=== PATIENT | female | born 1980 | race Caucasian/White ===

== ENCOUNTER 2020-10-05 14:37 | Emergency (ER) | payer MEDICAID ==
[~2020-10-05] VITALS: Ht 167.6 cm; Wt 86.4 kg
[2020-10-05 14:38] VITALS: TEMP 98.6
[2020-10-05] MEDS ORDERED: ZOLOFT 100MG100 MG PO (15:33)
[2020-10-05] MEDS ORDERED: SEROQUEL 2525 MG/TAB PO (15:34)
[2020-10-05] MEDS ORDERED: TOPROL XL 25MG25 MG PO (15:34)
[2020-10-05] MEDS ORDERED: KEPPRA1000 MG PO (15:35)
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
[2020-10-05 16:18] LABS: BASO % 0.4 % (0.0-2.0); GRAN # 3.7 (1.4-6.5); HEMATOCRIT 40.1 % (37.0-47.0); HEMOGLOBIN 13.7 g/dl (12.5-16.0); LYMPH # 1.6 (1.2-3.4); MEAN CELL VOLUME 94 fl (80.0-100.0); MEAN CORPUSCULAR HEMOGLOBIN 32 pg (27.0-31.0); MEAN CORPUSCULAR HGB CONC 34 g/dl (33.0-37.0); MEAN PLATELET VOLUME 8.7 fl (7.4-10.4); MONO # 0.3 (0.1-0.6); MONO % 5.2 % (1.7-9.3); PLATELET COUNT 155 K/mm3 (130-400); RED BLOOD COUNT 4.26 M/mm3 (4.10-5.30); REDCELL DISTRIBUTION WIDTH-CV 15.8 % (11.5-14.5)
[2020-10-05 16:23] LABS: ALANINE AMINOTRANSFERASE 37 U/L (4-34); ALBUMIN 4.7 gm/dL (3.5-5.0); ALKALINE PHOSPHATASE 88 U/L (50-136); ANION GAP 15 mmol/L (7-16); AST,SGOT 110 U/L (15-37); BILIRUBIN,TOTAL 0.4 mg/dL (0.0-1.0); BLOOD UREA NITROGEN 14 mg/dL (7-17); CALCIUM 8.2 mg/dL (8.4-10.2); CARBON DIOXIDE 25 mmol/L (22-30); CHLORIDE 103 mmol/L (98-107); CREATININE, serum 0.49 (0.52-1.25); GLUCOSE 93 mg/dL (74-106); POTASSIUM 4.1 mmol/L (3.4-5.0); SODIUM 143 mmol/L (137-145); TOTAL PROTEIN 7.7 gm/dL (6.4-8.2)
[2020-10-05 16:25] LABS: ACETAMINOPHEN < 10 ug/mL (10-30); SALICYLATE < 1.0 mg/dL
[2020-10-05 18:53] LABS: TRICYCLIC ANTIDEPRESS URINE NEGATIVE
[2020-10-06 07:05] VITALS: BP 133/77; PULSE 97
== END 2020-10-06 07:10 | disposition home or self-care (01) ==
LOC: COL.ER 14:37
PROVIDERS: Emergency Medicine
DX: F10.129 Alcohol abuse with intoxication, unspecified (principal); R45.851 Suicidal ideations; M25.571 Pain in right ankle and joints of right foot; F17.200 Nicotine dependence, unspecified, uncomplicated; Z91.410 Personal history of adult physical and sexual abuse
CPT/HCPCS: J1170; J2405; J3010

== ENCOUNTER 2020-12-06 16:28 | Emergency (ER) | payer MEDICAID ==
[~2020-12-06] VITALS: Ht 167.6 cm; Wt 95.5 kg
[~2020-12-06 16:28] MED LIST: KEPPRA1000 MG PO; SEROQUEL 2525 MG/TAB PO; TOPROL XL 25MG25 MG PO; ZOLOFT 100MG100 MG PO
[2020-12-06 17:45] LABS: BASO % 0.7 % (0.0-2.0); EOS % 0.2 % (0-4.0); GRAN # 2.4 (1.4-6.5); GRAN % 54.8 % (42.2-75.2); HEMATOCRIT 43.7 % (37.0-47.0); HEMOGLOBIN 15.7 g/dl (12.5-16.0); LYMPH # 1.7 (1.2-3.4); LYMPH % 38.1 % (20.0-51.0); MEAN CELL VOLUME 90 fl (80.0-100.0); MEAN CORPUSCULAR HEMOGLOBIN 32 pg (27.0-31.0); MEAN CORPUSCULAR HGB CONC 36 g/dl (33.0-37.0); MEAN PLATELET VOLUME 9.2 fl (7.4-10.4); MONO # 0.3 (0.1-0.6); MONO % 5.7 % (1.7-9.3); PLATELET COUNT 211 K/mm3 (130-400); RED BLOOD COUNT 4.87 M/mm3 (4.10-5.30); REDCELL DISTRIBUTION WIDTH-CV 13.4 % (11.5-14.5)
[2020-12-06 18:24] LABS: ALBUMIN 4.4 gm/dL (3.5-5.0); BILIRUBIN,TOTAL 0.8 mg/dL (0.0-1.0); CALCIUM 7.3 mg/dL (8.4-10.2); CREATININE, serum 0.51 (0.52-1.25); POTASSIUM 3.7 mmol/L (3.4-5.0); TOTAL PROTEIN 7.7 gm/dL (6.4-8.2)
[2020-12-06] MEDS ORDERED: NORCO 325 MG-51 TAB PO (18:56)
[2020-12-06 19:36] VITALS: BP 128/64; PULSE 81; TEMP 97
== END 2020-12-06 19:40 | disposition home or self-care (01) ==
LOC: COL.ER 16:28
PROVIDERS: Emergency Medicine
DX: K08.89 Other specified disorders of teeth and supporting structures (principal); F10.129 Alcohol abuse with intoxication, unspecified; T74.11XA Adult physical abuse, confirmed, initial encounter; I10 Essential (primary) hypertension; G40.909 Epilepsy, unspecified, not intractable, without status epilepticus; Z87.891 Personal history of nicotine dependence; Y90.8 Blood alcohol level of 240 mg/100 ml or more; Z79.899 Other long term (current) drug therapy; X58.XXXA Exposure to other specified factors, initial encounter

== ENCOUNTER 2020-12-25 21:22 | Emergency (ER) | payer MEDICAID ==
[~2020-12-25] VITALS: Ht 167.6 cm; Wt 90.9 kg
[~2020-12-25 21:22] MED LIST changes: +NORCO 325 MG-51 TAB PO
[2020-12-25 22:40] VITALS: BP 125/81; PULSE 100; TEMP 98.5
== END 2020-12-25 23:10 | disposition home or self-care (01) ==
LOC: COL.ER 21:22
DX: G89.29 Other chronic pain (principal); M25.571 Pain in right ankle and joints of right foot; I10 Essential (primary) hypertension; G40.909 Epilepsy, unspecified, not intractable, without status epilepticus; Z87.891 Personal history of nicotine dependence; Z79.899 Other long term (current) drug therapy; W19.XXXA Unspecified fall, initial encounter
CPT/HCPCS: J3010

== ENCOUNTER 2020-12-27 14:59 | Emergency (ER) | payer MEDICAID ==
[~2020-12-27] VITALS: Ht 167.6 cm; Wt 84.1 kg
[2020-12-27 18:24] VITALS: BP 128/74; PULSE 80; TEMP 98
== END 2020-12-27 18:26 | disposition home or self-care (01) ==
LOC: COL.ER 14:59
DX: S93.401A Sprain of unspecified ligament of right ankle, initial encounter (principal); F32.9 Major depressive disorder, single episode, unspecified; F41.9 Anxiety disorder, unspecified; F17.200 Nicotine dependence, unspecified, uncomplicated; Z87.81 Personal history of (healed) traumatic fracture; Z98.890 Other specified postprocedural states; Z79.899 Other long term (current) drug therapy; W10.9XXA Fall (on) (from) unspecified stairs and steps, initial encounter; Y92.009 Unspecified place in unspecified non-institutional (private) residence as the place of occurrence of the external cause
CPT/HCPCS: J2270

== ENCOUNTER 2021-01-07 15:45 | Emergency (ER) | payer MEDICAID ==
[~2021-01-07] VITALS: Ht 167.6 cm; Wt 81.8 kg
[2021-01-07 15:46] VITALS: TEMP 98.1
[2021-01-07] MEDS ORDERED: NEURONTIN300 MG/CAP PO ×2 (15:50→16:27)
[2021-01-07] MEDS ORDERED: ASPIRIN 32325 MG/TAB PO (15:57)
[2021-01-07] MEDS ORDERED: CAMPRAL333 M1 (15:58)
[2021-01-07] MEDS ORDERED: AMOXICILLIN 50500 MG PO (15:59)
[2021-01-07] MEDS ORDERED: SEROQUEL 2525 MG/TAB PO (15:59)
[2021-01-07] MEDS ORDERED: DESYREL 50MG50 MG PO (16:01)
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
[2021-01-07 16:43] VITALS: BP 143/92; PULSE 104
== END 2021-01-07 16:55 | disposition home or self-care (01) ==
LOC: COL.ER 15:45
DX: M25.572 Pain in left ankle and joints of left foot (principal); G89.29 Other chronic pain; Z98.890 Other specified postprocedural states
CPT/HCPCS: J1885; J2360

== ENCOUNTER 2021-05-07 18:20 | Inpatient (IN) | payer MEDICAID ==
[~2021-05-07] VITALS: Ht 167.6 cm; Wt 90.1 kg
[~2021-05-07 18:20] MED LIST changes: +AMOXICILLIN 50500 MG PO; +ASPIRIN 32325 MG/TAB PO; +CAMPRAL333 M1; +DESYREL 50MG50 MG PO; +NEURONTIN300 MG/CAP PO
[2021-05-07 19:26] LABS: ALANINE AMINOTRANSFERASE 33 U/L (0-55); ALBUMIN 3.8 gm/dL (3.5-5.0); ANION GAP 23 mmol/L (7-16); AST,SGOT 72 U/L (5-34); BILIRUBIN,TOTAL 0.5 mg/dL (0.2-1.2); BLOOD UREA NITROGEN 7 mg/dL (7-19); CHLORIDE 102 mmol/L (98-107); GLUCOSE 103 mg/dL (70-99); SODIUM 137 mmol/L (136-145)
[2021-05-07 19:29] LABS: CARBON DIOXIDE 12 mmol/L (22-29)
[2021-05-07 19:32] LABS: TROPONIN-I < 0.010 ng/mL (0.00-0.033)
[2021-05-07 20:05] LABS: ALKALINE PHOSPHATASE 91 U/L (50-136)
[2021-05-07 21:07] LABS: HEMOGLOBIN 12.7 g/dl (12.5-16.0); MEAN CELL VOLUME 91 fl (80.0-100.0); MEAN CORPUSCULAR HEMOGLOBIN 32 pg (27.0-31.0); MEAN CORPUSCULAR HGB CONC 35 g/dl (33.0-37.0); MEAN PLATELET VOLUME 11.2 fl (7.4-10.4); REDCELL DISTRIBUTION WIDTH-CV 14.9 % (11.5-14.5)
[2021-05-07 21:13] LABS: HEMATOCRIT 36.2 % (37.0-47.0)
[2021-05-07 21:15] LABS: PLATELET COUNT 40 K/mm3 (130-400)
[2021-05-07 21:40] LABS: BAND 2 % (0-10); BASOPHIL 1 % (0-2); LYMPHOCYTE 60 % (20.0-51.0); NEUTROPHILS 34 % (42.0-75.2)
[2021-05-07 21:41] LABS: PLATELET ESTIMATE DECREASED (NORMAL)
[2021-05-07 21:45] LABS: ARTERIAL BLD GAS O2 SATURATION 96.4 % (92-100); ARTERIAL BLD GAS TCO2 CT 19.9; ARTERIAL BLOOD GAS BASE EXCESS -3.8 (-2-2); ARTERIAL BLOOD GAS PCO2 28.3 mmHg (35-45); ARTERIAL BLOOD GAS PO2 92.3 mmHg (80-100); ARTERIAL BLOOD GAS pH 7.45 (7.35-7.45)
[2021-05-07 23:22] VITALS: BP 149/80; PULSE 102; TEMP 98.7
[2021-05-07 23:25] LABS: INR 1.1 (0.8-3.0); PROTHROMBIN TIME 12.5 SECONDS (9.7-12.8)
[2021-05-08] VITALS (11 sets, daily range): BP systolic 138–174; BP diastolic 70–110; PULSE 97–136; TEMP 97.9–98.4
--- NOTE | 2021-05-08 01:36 | NUR ---
PT RECEIVED ON FLOOR, VITAL SIGNS TAKEN AND ADMISSION ASSESSMENTS COMPLETED. PT STATING PAIN IS PARTIALLY RELIEVED WITH MORPHINE. PT IV SITE CHANGED TO RIGHT HAND. PT ORIENTED TO ROOM. PILLOW AND ICE PACK GIVEN FOR COMFORT. NO OTHER NEEDS AT THIS TIME.
[2021-05-08 01:42] LABS: COLLECTION METHOD CLEAN CATCH
[2021-05-08 01:47] LABS: PH 7 (5-8); SQUAMOUS EPITHELIAL 0-2 /hpf; URINE APPEARANCE Clear; URINE BACTERIA None Seen /hpf; URINE BILIRUBIN Negative (NEGATIVE); URINE BLOOD 1+ (NEGATIVE); URINE COLOR Yellow; URINE GLUCOSE Negative (NEGATIVE); URINE KETONE Trace (NEGATIVE); URINE LEUKOCYTE ESTERASE Negative (NEGATIVE); URINE NITRATE Negative (NEGATIVE); URINE PROTEIN(semi-quant) Negative (NEGATIVE); URINE RBC 0-2 /hpf; URINE UROBILINOGEN Negative (NEGATIVE); URINE WBC 0-2 /hpf
--- NOTE | 2021-05-08 03:16 | NUR ---
PT REQUESTING HEART RATE CHECK. PT HEART RATE 103-107BPM. PT DENIES PAIN OR SOA. PT AMBULATED TO RESTROOM, WILL CONTINUE TO MONITOR.
--- NOTE | 2021-05-08 03:22 | NUR ---
NOTIFIED MARYAM SABA OF ELEVATED HEART RATE AND INCREASED ANXIETY. RECEIVED VERBAL INSTRUCTIONS FOR ATIVAN AND CONTINUING TO MONITOR AND CIWA SCORING.
--- NOTE | 2021-05-08 04:25 | NUR ---
NOTIFIED MARYAM SABA OF ELEVATED BLOOD PRESSURE.
--- NOTE | 2021-05-08 05:05 | NUR ---
PT BP RECHECKED MANUALLY AT THIS TIME, 170/110. PRN HYDRALAZINE TO BE GIVEN AT THIS TIME.
--- NOTE | 2021-05-08 05:45 | NUR ---
PT CONTINUING ON PLAN OF CARE. PT RECEIVED BOLUS OF LACTATED RINGERS AFTER LACTIC ACID VALUE COLLECTED. PT CONTINUES TO HAVE MAINTENANCE FLUIDS RUNNING. PT BLOOD PRESSURE ELEVATED, MANAGED WITH PRN HYDRALAZINE. PT ABLE TO AMBULATE TO BATHROOM, SBA ASSIST. PT REFUSING [place]KEER AT THIS TIME. PT PAIN MANAGED WITH PRN MEDICATIONS PER ORDERS. PT CIWA SCORING 3-7. GIVEN 1MG OF IV ATIVAN PER ORDERS.
[2021-05-08 08:09] LABS: HEMATOCRIT 37.1 % (37.0-47.0); MEAN CELL VOLUME 91 fl (80.0-100.0); MEAN CORPUSCULAR HEMOGLOBIN 32 pg (27.0-31.0); MEAN CORPUSCULAR HGB CONC 35 g/dl (33.0-37.0); MEAN PLATELET VOLUME 10.9 fl (7.4-10.4); REDCELL DISTRIBUTION WIDTH-CV 14.9 % (11.5-14.5)
[2021-05-08 08:13] LABS: PLATELET COUNT 39 K/mm3 (130-400)
[2021-05-08 08:20] LABS: CREATININE, serum 0.61 mg/dL (0.57-1.11); POTASSIUM 3.2 mmol/L (3.5-4.5)
[2021-05-08 09:20] LABS: ANISOCYTOSIS 1+; BAND 58 % (0-10); NEUTROPHILS 18 % (42.0-75.2); PLATELET ESTIMATE DECREASED (NORMAL)
[2021-05-08 15:23] LABS: MAGNESIUM 2.2 mg/dL (1.6-2.6); POTASSIUM 3.3 mmol/L (3.5-4.5)
[2021-05-09] VITALS: BP 145/87; PULSE 94; TEMP 98.1
--- NOTE | 2021-05-09 01:24 | NUR ---
PT ALERT AND ORIENTED. PT PAIN MANAGED WITH PRN MEDICATIONS PER ORDERS. PT ABLE TO AMBULATE TO BATHROOM, SBA. PT CLEAR LUNGS. PT TACHYCARDIA AND ELEVATED BLOOD PRESSURE. PT ABLE TO EXPRESS NEEDS. PT CALL LIGHT WITHIN REACH. NEW MASK GIVEN, NO OTHER NEEDS AT THIS TIME.
--- NOTE | 2021-05-09 01:41 | NUR ---
Called from [facility] to get some [place] for PT, Pt decided to wait for his morphine. Prague returned to [facility] external bin.
[2021-05-09 02:35] VITALS: BP 142/88; PULSE 85; TEMP 98.1
--- NOTE | 2021-05-09 04:19 | NUR ---
0400 VITAL SIGNS AND CIWA SCORE DEFERRED TO PROMOTE REST. PT HAS HAD BOUTS OF INSOMNIA THIS SHIFT, RECEIVED IV ATIVAN AT 0200 PER CIWA PROTOCOL. VITAL SIGNS HAVE REMAINED STABLE THIS SHIFT, TRENDING DECREASE OF HEART RATE, NO LONGER TACHYCARDIA ON TELEMETRY AND PER VITAL SIGN COLLECTION.
[2021-05-09 05:01] VITALS: BP 145/88; PULSE 86; TEMP 97.2
--- NOTE | 2021-05-09 05:11 | NUR ---
PT CONTINUING ON PLAN OF CARE. PT REMAINED FREE FROM INJURY THIS SHIFT. PT ABLE TO AMBULATE TO RESTROOM. REMINDED TO CALL DON'T FALL. PT CONTINUING ON MAINTENANCE FLUIDS. PT CIWA SCORING 3-4 THROUGHOUT SHIFT. MANAGED WITH ATIVAN PER PROTOCOL. PT PAIN MANAGED WITH PRN MEDICATIONS PER ORDERS. PT INCREASINGLY REQUESTING MORPHINE, WILL PASS ON TO DAY SHIFT.
--- NOTE | 2021-05-09 08:14 | NUR ---
Pt awake upon entry, talkative this morning. Has C/O pain, medications given for relief. Shift assessment complete, left Pt call light in reach, bed in lowest position.
[2021-05-09 09:14] VITALS: BP 144/74; PULSE 62; TEMP 97.8
[2021-05-09 09:33] LABS: GRAN # 2.1 K/mm3 (1.4-6.5); GRAN % 66.2 % (42.2-75.2); HEMOGLOBIN 11.8 g/dl (12.5-16.0); LYMPH # 0.8 K/mm3 (1.2-3.4); LYMPH % 25.8 % (20.0-51.0); MEAN CELL VOLUME 92 fl (80.0-100.0); MEAN CORPUSCULAR HEMOGLOBIN 32 pg (27.0-31.0); MEAN CORPUSCULAR HGB CONC 34 g/dl (33.0-37.0); MEAN PLATELET VOLUME 12.9 fl (7.4-10.4); MONO # 0.2 K/mm3 (0.1-0.6); RED BLOOD COUNT 3.74 M/mm3 (4.10-5.30); REDCELL DISTRIBUTION WIDTH-CV 15.2 % (11.5-14.5)
[2021-05-09 09:57] LABS: HEMATOCRIT 34.3 % (37.0-47.0); PLATELET COUNT 42 K/mm3 (130-400)
[2021-05-09] MEDS ORDERED: MOTRIN 600600 MG/TAB PO (10:32)
[2021-05-09] MEDS ORDERED: K-DUR20 MEQ PO (10:32)
[2021-05-09] MEDS ORDERED: NORCO 325 MG-51 TAB PO (10:33)
--- NOTE | 2021-05-09 13:04 | NUR ---
Pt discharged to home, discussed discharge instructions with Pt, answered questions. Escorted Pt to entrance, Pt left with family via private transportation.
== END 2021-05-09 13:05 | disposition home or self-care (01) | DRG 897 ==
LOC: COL.ER → MEDICAL 20:52
PROVIDERS: Student in an Organized Health Care Education/Training Program; ADMIT Internal Medicine
DX: F10.129 Alcohol abuse with intoxication, unspecified (principal); E87.2 Acidosis; D61.818 Other pancytopenia; E83.42 Hypomagnesemia; F17.210 Nicotine dependence, cigarettes, uncomplicated; E87.6 Hypokalemia; Y90.8 Blood alcohol level of 240 mg/100 ml or more; D69.6 Thrombocytopenia, unspecified; Z86.16 Personal history of COVID-19; K76.0 Fatty (change of) liver, not elsewhere classified; G40.909 Epilepsy, unspecified, not intractable, without status epilepticus; I10 Essential (primary) hypertension; F32.A Depression, unspecified; K70.0 Alcoholic fatty liver
CPT/HCPCS: 99223-AI; 99232-AI; C9113; J0360; J0696; J2060; J2270; J2405; J3475; J7030; J7120; J8540; Q9967

== ENCOUNTER 2021-05-16 21:02 | Emergency (ER) | payer MEDICAID ==
[~2021-05-16] VITALS: Ht 167.6 cm; Wt 84.1 kg
[~2021-05-16 21:02] MED LIST changes: +K-DUR20 MEQ PO; +MOTRIN 600600 MG/TAB PO
[2021-05-16] MEDS ORDERED: DOXYCYCLINE 10100 MG PO (21:30)
[2021-05-16 21:45] VITALS: BP 134/78; PULSE 81; TEMP 98.4
== END 2021-05-16 21:45 | disposition home or self-care (01) ==
LOC: COL.ER 21:02
DX: J18.9 Pneumonia, unspecified organism (principal); I10 Essential (primary) hypertension; Z79.899 Other long term (current) drug therapy
CPT/HCPCS: J1885